=== PATIENT | male | born 1990 | race African-American/Black ===

== ENCOUNTER 2021-10-06 10:05 | Emergency (ER) | payer OTHER ==
[~2021-10-06] VITALS: Ht 185.4 cm; Wt 117.9 kg
[2021-10-06 12:01] VITALS: BP 141/101
== END 2021-10-06 12:01 | disposition home or self-care (01) ==
LOC: ER 10:05
PROVIDERS: Emergency Medicine
DX: U07.1 COVID-19 (principal); S39.012A Strain of muscle, fascia and tendon of lower back, initial encounter; F12.90 Cannabis use, unspecified, uncomplicated; R51.9 Headache, unspecified; Z88.0 Allergy status to penicillin; X58.XXXA Exposure to other specified factors, initial encounter; Y93.89 Activity, other specified; Y92.89 Other specified places as the place of occurrence of the external cause; Y99.8 Other external cause status